=== PATIENT | female | born 1955 | race Caucasian/White ===

== ENCOUNTER 2023-05-10 19:07 | Emergency (ER) | payer MEDICARE, SELFPAY ==
[2023-05-10 19:17] VITALS: BP 174/64; PULSE 73; RESP 18; TEMP 36.8; O2SAT 97
--- NOTE | 2023-05-10 19:22 | ED.SKABFB ---
HPI - Skin/Abscess/Foreign Bdy General Chief complaint: Skin/Abscess/Foreign Body Stated complaint: Left Leg/ Skin Problem Time Seen by Provider: 05/10/23 19:22 Source: patient Mode of arrival: ambulatory Limitations: no limitations History of Present Illness HPI narrative: 67-year-old female presented for complaint of redness and wound to the left thigh for about 2 days. She has been cleansing the site and applying hydrocortisone cream. She endorses the reddened area has become larger and spreading around the site. States the center is black with surrounding reddened firm area. States the site is itchy. States she thought it might be from a cat scratch. Patient denies VERDE, fatigue, joint pain, neck pain, myalgias, nausea, vomiting, diarrhea, fevers or chills. Related Data Allergies Allergy/AdvReac Type Severity Reaction Status Date / Time No Known Allergies Allergy Verified 05/10/23 19:24 Review of Systems Review of Systems: CONSTITUTIONAL: Denies body aches, fever, chills, or sweats. EYES: Denies visual changes, redness, or discharge. ENT: Denies rhinorrhea, congestion CARDIOVASCULAR: Denies chest pain, palpitations, or edema. RESPIRATORY: Denies cough or dyspnea. GASTROINTESTINAL: Denies abdominal pain, nausea, vomiting, or diarrhea. SKIN: reports redness surrounding dark spot on thigh MUSCULOSKELETAL: Denies back pain, joint pain, or myalgia. NEUROLOGIC: Denies headache, numbness, tingling, or weakness. [facility] Past Medical History Medical History (Updated 05/10/23 @ 19:55 by Ashanti Mendoza, CHRIS) No pertinent past medical history Comments At time of signature, I have reviewed and agree with nursing past medical, surgical, social and family history unless otherwise noted. Please see nursing chart for further information. There is no relevant family history pertinent to the presenting complaint Exam Narrative: GENERAL: Well-appearing HEAD: Normocephalic, atraumatic. EYES: conjunctivae clear, and EOMI. ENT: Mucous membranes moist. Oropharynx without edema, erythema or lesions. NECK: Supple. No lymphadenopathy CHEST: Clear to auscultation. HEART: Regular rate and rhythm. SKIN: Warm, dry. Tick embedded into the left upper thigh, surrounding dark red of approx 2cm diameter, bull's eye appearance surrounding the site with erythema, nontender, no fluctuance or drainage. NEURO: Alert and oriented x3. Course Course Emergency Course: Patient is aware of diagnosis, understands and agrees to treatment plan. Anticipatory guidance given. Patient agrees to follow-up as directed and is aware of reasons to seek care at the emergency department. Portions of this record may have been created with voice recognition software Level of Care: Express Care Visit Vital Signs Vital signs: Reviewed Procedures Foreign Body Removal Foreign Body #1: Foreign Body Removal Date: 05/10/23 Site: left (thigh) Description of foreign body: insect (tick) Technique: removal with forceps (tweezers) Confirmed by:: direct visualization and palpation Complications: none Foreign Body Removal Narrative: Site was cleansed prior to removal with wound cleanser, tick was removed and site was cleansed again with cleanser; BRENDA and bandaid applied. Site outlined with skin marker. MDM - Skin/Abscess/Foreign Bdy MDM Narrative Medical decision making narrative: Discussed physical exam findings. Tick was removed completely, however the body of the tick was punctured. Rx reviewed. Patient does not have PCP, advised the importance of close f/u. Advised supportive measures and signs/symptoms to go to the ER. Pt is appropriate for outpt treatment and f/u. Instructed patient to go to nearest ER immediately for any worsening symptoms including but not limited to: fever, spreading rash, pain, sore throat, headache, dizziness, chest pain, trouble breathing, or any symptoms concerning to th
[2023-05-10 19:27] VITALS: BP 174/64; PULSE 73; RESP 18; TEMP 36.8; O2SAT 97
== END 2023-05-10 19:52 | disposition home or self-care (01) ==
PROVIDERS: Emergency Provider Nurse Practitioner Family
DX: S70.362A Insect bite (nonvenomous), left thigh, initial encounter (principal); W57.XXXA Bitten or stung by nonvenomous insect and other nonvenomous arthropods, initial encounter
CPT/HCPCS: 99213; G0463